=== PATIENT | male | born 1960 | race Caucasian/White ===

== ENCOUNTER → 2018-06-06 | Outpatient (CLI) | payer OTHER ==
[2018-06-06 12:09] LABS: Basophils % (A) 1 %; Eosinophils # (A) 0.1 k/uL (0-0.7); Eosinophils % (A) 1 %; HCT 39.2 % (39.0-53.0); HGB 13.6 gm/dL (13.0-17.5); Lymphocytes # (A) 1.7 k/uL (1.0-4.8); Lymphocytes % (A) 32 %; MCHC 34.7 g/dL (31.0-37.0); MCV 98.1 fL (80.0-100.0); Mean Platelet Volume 6.9; Monocytes # (A) 0.4 k/uL (0-1.0); Monocytes % (A) 7 %; Neutrophils # (A) 3.1 k/uL (1.3-7.7); Neutrophils % (A) 58 %; Platelet Count 217 k/uL (150-450); RDW 13.7 % (11.5-15.5); WBC 5.4 k/uL (3.8-10.6)
[2018-06-06 12:34] LABS: Potassium 4.9 mmol/L (3.5-5.1)
== END | disposition home or self-care (01) ==
LOC: LABPAT 10:45
PROVIDERS: ATTEND Orthopaedic Surgery
DX: Z01.812 Encounter for preprocedural laboratory examination (principal); M23.91 Unspecified internal derangement of right knee
CPT/HCPCS: 36415; 80051; 85025

== ENCOUNTER 2018-06-07 09:40 | Day surgery (SDC) | payer OTHER ==
--- NOTE | 2018-06-06 12:57 | HP ---
HISTORY AND PHYSICAL CHIEF COMPLAINT: Right knee pain. 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 He notes he is having pain with weightbearing activities. He notes the knee feels like it wants to give out. He notes swelling and stiffness as well. He is having a difficult time with this. He has been using a brace and has tried medications with only partial temporary relief. He also had a previous injection. PAST MEDICAL HISTORY: Significant for hypertension. CURRENT MEDICATIONS: 1. Ibuprofen. 2. Lisinopril. ALLERGIES: He denies drug allergies. FAMILY HISTORY: Family history is significant for heart disease. SOCIAL HISTORY: Significant for previous tobacco use; however, quit in 2014. REVIEW OF SYSTEMS: Sixteen-point review of systems otherwise reviewed and is noncontributory. PHYSICAL EXAMINATION: On examination, the patient is approximately 5 feet 11 inches, 187 pounds of mesomorphic habitus. HEENT exam is nonfocal. Neck is supple. He has painless passive motion right hip. Straight leg raise is negative. Active motion right knee -12 to 124 degrees of flexion. There is a trace effusion. He is tender about the medial joint line. Collaterals are stable, Gerhard's negative, Kwabena's with medial pain. His distal neurovascular exam appears intact in the right lower extremity. MRI report right knee obtained 04/05/2018 shows a posteromedial meniscal tear along with medial compartment osteoarthrosis. IMPRESSION: 1. Right knee internal derangement with symptomatic meniscal tear. 2. Right knee moderate medial compartment osteoarthrosis. RECOMMENDATIONS: I talked to the patient at length regarding his condition and treatment options. At this point, he is having significant pain and mechanical symptoms despite conservative measures. After thorough discussion, he opts to proceed with surgery. We will plan to proceed with arthroscopic evaluation, possible partial medial meniscectomy. We will likely perform that as an outpatient procedure. Risks and benefits were discussed at length in layman's terms. MMODL / IJN: [id number] /
[~2018-06-07 09:40] MED LIST: DEXAMETHASONE SOD PHOSPHATE 10 MG/ML 1 ML VIAL IV ONE; LACTATED RINGERS 1,000 ML IV SCH; LIDOCAINE 1% 20 ML VIAL (10MG/ML) FOR IV START INTRADERMA PRN; MIDAZOLAM 2 MG/2 ML VIAL IV PRN; ONDANSETRON 4 MG/2 ML VIAL IVP ONE; ceFAZolin IN SWFI 2 GM/20 ML SYRINGE IVP ONE; fentaNYL (PF) 50 MCG/ML 2 ML AMP IV PRN
[2018-06-07] MEDS ORDERED: PROPOFOL 10 MG/ML 20 ML VIAL IV ONE (11:50)
[2018-06-07] MEDS ORDERED: LIDOCAINE 1% INJ 10MG/ML (20 ML MDV) ONE (11:50)
[2018-06-07] MEDS ORDERED: MIDAZOLAM 2 MG/2 ML VIAL ONE (11:50)
[2018-06-07] MEDS ORDERED: fentaNYL (PF) 50 MCG/ML 2 ML AMP ONE (11:50)
[2018-06-07] MEDS ORDERED: HYDROmorphone (PF) 1 MG/ML ONE (11:50)
--- NOTE | 2018-06-07 12:31 | P.OP ---
Date of Procedure: 06/07/18 Preoperative Diagnosis: Right knee internal derangement Postoperative Diagnosis: Right knee posterior medial meniscal tear/posterior lateral meniscal tear/grade 3 chondral injury distal lateral medial femoral condyle Procedure(s) Performed: Right knee arthroscopic partial medial meniscectomy/partial lateral meniscectomy /medial femoral chondrectomy Anesthesia: JUDSON Surgeon: Darryn Peter Estimated Blood Loss (ml): 10 Pathology: none sent Condition: stable Disposition: PACU Indications for Procedure: The patient's a 58-year-old male who presents with progressive right knee pain and mechanical symptoms despite adequate conservative measures. A discussion of the risks and benefits of operative intervention versus continued conservative measures was made with patient. He opted to proceed with surgery. Operative risks to include infection, neurovascular injury, development of blood clots, possible incomplete resolution of symptoms, possible worsening symptoms and need for surgical procedures was discussed. Informed consent was obtained. Operative Findings: As below Description of Procedure: The patient was brought to the operating room, and after induction of general anesthesia examined the right knee. Collaterals were stable, Gerhard was negative, and posterior drawer was negative. The right lower extremity was prepped and draped in a normal fashion. A superior lateral portal was made through a 3 mm skin incision superior and lateral to the patella. This was used for outflow. A lateral portal was made through a 5 mm vertical skin incision lateral to the patella tendon above the joint line. Diagnostic arthroscopy was performed. On inspection of the medial compartment a complex tear involving the middle to posterior one third of the medial meniscus was noted. This was debrided back to stable base with straight baskets and a motorized shaver. A grade 3 chondral injury involving the distal lateral portion of the medial femoral condyle was noted. There was a loose chondral flap debrided back to stable base with a motorized shaver. On inspection of the notch, the anterior cruciate ligament appeared to be intact. On inspection of the lateral compartment an oblique tear involving the posterior aspect of the lateral meniscus in the white-white junction was noted. This was debrided back to a stable base with a motorized shaver.. On inspection of the patellofemoral articulation mild degenerative changes were noted diffusely. The gutters were clear debris. The knee was then thoroughly irrigated. The portals were closed with Steri-Strips. A sterile dressing was applied in addition to a compression stocking. The patient was awoken from general anesthesia and transferred to recovery room in good condition. Blood loss was estimated at 10 mL. No complications were incurred.
[2018-06-07 12:35] VITALS: TEMP 97.5
[2018-06-07 12:48] VITALS: RESP 16
[2018-06-07] MEDS: HYDROmorphone 1 MG/ML 1 ML SYRINGE IVP PRN ×2 (12:53→13:01)
[2018-06-07 13:17] VITALS: BP 159/90; PULSE 70
[2018-06-07] MEDS ORDERED: HYDROcodone/APAP 5-325MG 1 EACH TAB PO ONE (13:33)
== END 2018-06-07 14:11 | disposition home or self-care (01) ==
LOC: OR 09:40
PROVIDERS: ATTEND Orthopaedic Surgery
DX: S83.231A Complex tear of medial meniscus, current injury, right knee, initial encounter (principal); S83.281A Other tear of lateral meniscus, current injury, right knee, initial encounter; S89.81XA Other specified injuries of right lower leg, initial encounter; X50.1XXA Overexertion from prolonged static or awkward postures, initial encounter; M17.11 Unilateral primary osteoarthritis, right knee; I10 Essential (primary) hypertension; F32.9 Major depressive disorder, single episode, unspecified; Z79.899 Other long term (current) drug therapy
CPT/HCPCS: 29880; J2250; J2001; J3010; J1170; J2704; J0690

== ENCOUNTER → 2018-09-17 | Outpatient (CLI) | payer OTHER ==
--- NOTE | 2018-09-17 11:36 | XR ---
EXAM TYPE: LUMBAR SPINE X RAY SERIES COMPARISON: NONE HISTORY: Back pain TECHNIQUE: 4 views are submitted. FINDINGS: Alignment is anatomic. The pedicles are intact. The transverse processes are intact. There is no s pondylolysis or spondylolisthesis. Hypertrophic changes of the vertebral bodies. Facet arthropathy L 5-S1. IMPRESSION: 1. Mild hypertrophic changes. Consider follow-up MRI.
--- NOTE | 2018-09-17 11:48 | XR ---
EXAMINATION TYPE: XR cervical spine comp DATE OF EXAM: 09/17/2018 COMPARISON: NONE HISTORY: Neck pain TECHNIQUE: Four views are submitted. FINDINGS: The odontoid is intact. There are no compression deformities. The prevertebral soft tissue structur es are within normal limits. Hypertrophic and degenerative change of the spine. Degenerative disc di sease C6-C7. Multilevel facet arthropathy. Foraminal encroachment C3-4 and C6-C7 on the left and C3-C 4 on the right. Calcification the soft tissue the neck appears related carotid artery calcification. IMPRESSION: 1. Multilevel degenerative disc disease with foraminal encroachment as discussed above correlate with MRI as clinically warranted.
== END | disposition home or self-care (01) ==
LOC: RADXRMAIN 11:02
PROVIDERS: ATTEND Family Medicine
DX: M53.86 Other specified dorsopathies, lumbar region (principal); M50.323 Other cervical disc degeneration at C6-C7 level
CPT/HCPCS: 72050; 72110

== ENCOUNTER → 2021-06-02 | Outpatient (CLI) | payer OTHER ==
[~2021-06-02] MED LIST changes: +CASIRIVIMAB (REGN10933) (EUA) 600 MG, IMDEVIMAB (REGN10987) (EUA) 600 MG in SODIUM CHLO... IVPB NR; -DEXAMETHASONE SOD PHOSPHATE 10 MG/ML 1 ML VIAL IV ONE; -LACTATED RINGERS 1,000 ML IV SCH; -LIDOCAINE 1% 20 ML VIAL (10MG/ML) FOR IV START INTRADERMA PRN; -MIDAZOLAM 2 MG/2 ML VIAL IV PRN; -ONDANSETRON 4 MG/2 ML VIAL IVP ONE; +SODIUM CHLORIDE 0.9% 50 ML IVPB NR; +SODIUM CHLORIDE 0.9% 500 ML 500 ML in EMPTY BAG 1 BAG IV PRN; -ceFAZolin IN SWFI 2 GM/20 ML SYRINGE IVP ONE; -fentaNYL (PF) 50 MCG/ML 2 ML AMP IV PRN
[2021-06-02 08:49] VITALS: RESP 18; TEMP 97.3
[2021-06-02 09:54] VITALS: BP 139/80; PULSE 65
== END | disposition home or self-care (01) ==
LOC: PROCWHC3 07:57
PROVIDERS: ATTEND Family Medicine
DX: U07.1 COVID-19 (principal)
CPT/HCPCS: 96360; Q0244; M0243